=== PATIENT | female | born 1975 | race Caucasian/White ===

== ENCOUNTER 2023-04-07 20:05 | Observation (INO) | payer OTHER, SELFPAY ==
[~2023-04-07 20:05] MED LIST: Iopamidol 370 76% 100 ML VIAL ONE
[2023-04-07 20:38] LABS: #Basophils 0.1 thou/uL (0.0-0.2); #Eosinphils 0.3 thou/uL (0.0-0.7); #Monocytes 0.8 thou/uL (0.11-0.59); #Neutrophils 4.1 thou/uL (1.40-6.50); %Basophils 0.6 % (0.0-1.0); %Eosinophils 2.8 % (0.0-10.0); %Lymphocytes 42.4 % (21.0-51.0); %Monocytes 8.7 % (0.0-10.0); %Neutrophils 45.2 % (42.0-75.0); Hematocrit 33.2 % (36.0-47.0); Hemoglobin 10.9 g/dL (12.0-16.0); Mean Corpuscular HGB CONC 32.8 g/dL (32.0-36.0); Mean Corpuscular Hemoglobin 30.5 pg (27.0-31.0); Mean Platelet Volume 9.7 fL (7.4-10.4); Platelet Count 245 10x3/uL (130-400); RBC Distribution Width 13.8 % (11.5-14.5); Red Blood Cell (RBC) Count 3.57 mill/uL (4.20-5.40); White Blood Cell (WBC) Count 9.1 10x3/uL (4.8-10.8)
[2023-04-07 20:48] LABS: INR-International Normal Ratio 0.9; Prothrombin Time 12.6 sec (12.0-14.7)
[2023-04-07 20:49] LABS: PTT 33.7 sec (22.9-36.1)
[2023-04-07 20:55] LABS: BHCG - Serum Negative (NEGATIVE); Pregs Control Background? CLEAR/WHITE (CLR/WHITE); Pregs Control Bar Appear? YES (CONTROL BAR)
[2023-04-07 21:04] LABS: Troponin I Less than 0.010 ng/mL (< 0.028)
[2023-04-07 21:06] LABS: ALT (SGPT) 11 U/L (8-55); AST (SGOT) 16 U/L (5-34); Albumin 4.4 g/dL (3.5-5.0); Alkaline Phosphatase 99 U/L (40-110); Anion Gap 15 mmol/L (10-20); BUN (Urea Nitrogen) 27 mg/dL (7.0-18.7); Bilirubin, Total 0.2 mg/dL (0.2-1.2); Calc. Creatinine Clearance 0 mL/min (70-130); Calcium 9.1 mg/dL (7.8-10.44); Carbon Dioxide 24 mmol/L (22-29); Chloride 106 mmol/L (98-107); Estimated GFR 48; Globulin 2.8 g/dL (2.4-3.5); Glucose 95 mg/dL (70-105); Potassium 4.1 mmol/L (3.5-5.1); Protein, Total 7.2 g/dL (6.0-8.3); Sodium 141 mmol/L (136-145)
[2023-04-07 21:16] LABS: Acetaminophen 12 mcg/mL (10.0-30.0); Alcohol Less than 10.0 mg/dL (Less than 10); Salicylate Less than 8.0 mg/dL (15.0-30.0)
[2023-04-07] MEDS ORDERED: Aspirin Chewable 81 MG TAB ONE (21:50)
[2023-04-07] MEDS ORDERED: Clopidogrel Bisulfate 75 MG TAB ONE (22:06)
[2023-04-07 22:38] LABS: Amphetamine Not Detected (NotDetected); Barbiturates Screen Detected (NotDetected); Benzodiazepine Screen Detected (NotDetected); Cocaine Metabolite Screen Not Detected (NotDetected); Methadone Not Detected (NotDetected); Methamphetamine Not Detected (NotDetected); Opiate Screen Detected (NotDetected); Oxycodone Screen Not Detected (NotDetected); Phencyclidine (PCP) Not Detected (NotDetected); THC/Cannabinoid Screen Not Detected (NotDetected); Tricyclic Screen Detected (NotDetected)
[2023-04-07 22:41] LABS: Bacteria/HPF None Seen HPF (None Seen); Bilirubin Negative (Negative); Blood, Urine Negative (Negative); CAUTI Indications for Culture Alt mental st,lethar; Clarity Clear (Clear); Glucose, Urine (Dipstick) Normal (Negative); Ketone, Urine Negative (Negative); Leukocyte Negative Leu/uL (Negative); Nitrite Negative (Negative); Protein, Urine (Dipstick) 10 mg/dL (Neg-Trace); RBC/HPF 0-3 HPF (0-3); Urobilinogen Normal mg/dL (Less than 2); WBC/HPF 0-3 HPF (0-3)
[2023-04-07 22:44] LABS: Specific Gravity, Urine Greater than 1.060 (1.002-1.036)
[2023-04-07 22:45] LABS: Urine Culture Reflex No No
[2023-04-07] MEDS ORDERED: Naloxone HCl 0.4 mg/ml Vial ONE (22:55)
[2023-04-07] MEDS ORDERED: Ondansetron ODT 4 MG TAB SL PRN (23:15)
[2023-04-07] MEDS ORDERED: Ondansetron PF 4 MG/2 ML Vial IVP PRN (23:15)
[2023-04-08 01:35] VITALS: BMI 32.3
[2023-04-08 02:40] LABS: Troponin I Less than 0.010 ng/mL (< 0.028)
[2023-04-08 02:51] LABS: Anion Gap 14 mmol/L (10-20); BUN (Urea Nitrogen) 23 mg/dL (7.0-18.7); Calc. Creatinine Clearance 84 mL/min (70-130); Calcium 8.8 mg/dL (7.8-10.44); Carbon Dioxide 22 mmol/L (22-29); Chloride 108 mmol/L (98-107); Estimated GFR 60; Glucose 99 mg/dL (70-105); Potassium 3.9 mmol/L (3.5-5.1); Sodium 140 mmol/L (136-145)
[2023-04-08 06:05] LABS: Troponin I Less than 0.010 ng/mL (< 0.028)
[2023-04-08] MEDS: Escitalopram Oxalate 20 mg Tablet PO SCH (08:41)
[2023-04-08] MEDS: Atorvastatin Calcium 20 MG TAB PO SCH (08:41)
[2023-04-08] MEDS: Montelukast Sodium 10 mg Tablet PO SCH (08:42)
[2023-04-08] MEDS: Acetaminophen 325 MG TAB PO PRN ×3 (08:42→21:00)
[2023-04-08] MEDS ORDERED: FLU VACC QS2023-24(6MOS UP)/PF 60 MCG/0.5 ML SYRINGE IM ONE (09:00)
[2023-04-08] MEDS ORDERED: Losartan 25 MG TAB PO SCH (11:00)
[2023-04-08] MEDS ORDERED: NIFEdipine XL 30 MG ER.TAB PO SCH ×3 (11:45→21:45)
[2023-04-08] MEDS: Promethazine 25 MG TAB PO PRN ×2 (11:47→20:59)
[2023-04-08] MEDS ORDERED: hydrALAZINE 10 MG TAB PO SCH ×2 (14:15→16:45)
[2023-04-08] MEDS ORDERED: Acetaminophen/Codeine 30-300mg Tablet PO SCH (15:03)
[2023-04-08] MEDS ORDERED: Ibuprofen 800 MG TAB PO SCH (15:05)
[2023-04-08] MEDS: Ziprasidone 60 MG CAP PO SCH (21:00)
[2023-04-08] MEDS: hydrOXYzine 25 MG TAB PO PRN (21:00)
[2023-04-08] MEDS ORDERED: Ketorolac Tromethamine 30 MG/ML VIAL IVP SCH (21:45)
[2023-04-08] MEDS ORDERED: Metoclopramide HCl 10 MG/2 ML VIAL IVP SCH (21:45)
[2023-04-08] MEDS ORDERED: Dexamethasone 10 MG in Sodium Chloride 0.9% 50 ML IVPB SCH (21:45)
[2023-04-08] MEDS ORDERED: Dexamethasone 10 MG/ML VIAL SLOW IVP SCH (22:00)
[2023-04-09 04:58] LABS: Anion Gap 15 mmol/L (10-20); BUN (Urea Nitrogen) 15 mg/dL (7.0-18.7); Calc. Creatinine Clearance 102 mL/min (70-130); Calcium 9.3 mg/dL (7.8-10.44); Carbon Dioxide 21 mmol/L (22-29); Chloride 105 mmol/L (98-107); Estimated GFR 75; Glucose 139 mg/dL (70-105); Potassium 4.3 mmol/L (3.5-5.1); Sodium 137 mmol/L (136-145)
[2023-04-09] MEDS: Acetaminophen 325 MG TAB PO PRN ×2 (06:17→10:19)
[2023-04-09] MEDS ORDERED: NIFEdipine XL 90 MG ER.TAB PO SCH (09:00)
[2023-04-09] MEDS ORDERED: NIFEdipine XL 60 MG ER.TAB PO SCH (09:00)
[2023-04-09] MEDS ORDERED: NIFEdipine XL 30 MG ER.TAB PO SCH (09:00)
[2023-04-09] MEDS ORDERED: Losartan 25 MG TAB PO SCH (09:00)
[2023-04-09] MEDS: Ziprasidone 60 MG CAP PO SCH (10:23)
[2023-04-09] MEDS: Escitalopram Oxalate 20 mg Tablet PO SCH (10:23)
[2023-04-09] MEDS: Atorvastatin Calcium 20 MG TAB PO SCH (10:23)
[2023-04-09] MEDS: Montelukast Sodium 10 mg Tablet PO SCH (10:23)
[2023-04-09] MEDS: Promethazine 25 MG TAB PO PRN (10:28)
[2023-04-09] MEDS: hydrOXYzine 25 MG TAB PO PRN (10:32)
[2023-04-09 11:57] VITALS: TEMP 97
[2023-04-09 12:39] VITALS: BP 134/69
== END 2023-04-09 13:20 | disposition home or self-care (01) ==
LOC: ERS 20:05 → 2NO 04-08 00:31
PROVIDERS: ADMIT Student in an Organized Health Care Education/Training Program; ATTEND Student in an Organized Health Care Education/Training Program
DX: G93.41 Metabolic encephalopathy (principal); I10 Essential (primary) hypertension; N17.9 Acute kidney failure, unspecified; G43.909 Migraine, unspecified, not intractable, without status migrainosus; F41.9 Anxiety disorder, unspecified; R94.31 Abnormal electrocardiogram [ECG] [EKG]; F31.9 Bipolar disorder, unspecified; Z88.8 Allergy status to other drugs, medicaments and biological substances; Z90.89 Acquired absence of other organs; Z79.899 Other long term (current) drug therapy
CPT/HCPCS: 36415; 36416; 70450; 70496; 70498; 71045; 80048; 80053; 80306; 80307; 81001; 83735; 84443; 84484; 84703; 85025; 85610; 85730; 93005; 96361; 96372; 96374; 96375; G0378; J1100; J1650; J1885; J2310; J2765; Q0169; Q9967